=== PATIENT | female | born 1970 | race Two or more races ===

== ENCOUNTER → 2024-04-10 | Outpatient (CLI) | payer MEDICAID, SELFPAY ==
--- NOTE | 2024-04-10 13:15 | XR_ITS ---
Examination: Screening digital mammography, bilateral Computer aided detection 3-D breast Tomosynthesis, bilateral Date and time of exam: April 10, 2024 1257 hours Compared to mammograms dating to April 09, 2014 Indication: Screening Technique: Nonmagnified MLO, CC views of the breasts to been obtained, reconstructed from 3-D Tomosynthesis images. R2 computer aided detection program utilized for evaluation of suspicious masses and/or abnormal calcifications. 3-D Tomosynthesis images obtained. Findings: Scattered areas of fibroglandular density. Benign calcifications. No interval suspicious masses Impression: BI-RADS category II: Benign Findings. Recommend 1 year follow-up mammogram.
== END | disposition home or self-care (01) ==
PROVIDERS: PCP Obstetrics & Gynecology; Referring Provider Obstetrics & Gynecology; Visit Provider Obstetrics & Gynecology
DX: Z12.31 Encounter for screening mammogram for malignant neoplasm of breast (principal); R92.323 Mammographic fibroglandular density, bilateral breasts; R92.1 Mammographic calcification found on diagnostic imaging of breast
CPT/HCPCS: 77063; 77067

== ENCOUNTER → 2025-04-28 | Outpatient (CLI) | payer MEDICAID, SELFPAY ==
--- NOTE | 2025-04-28 13:16 | XR_ITS ---
Radiographic 2 view study of the right foot on 04/28/2025 at 1:50 p.m. CLINICAL INDICATION: Right foot pain particularly in the heel for 4-month Findings a few tiny insignificant subchondral degenerative cystic erosions are seen in the base of the second proximal phalanx. There are small degenerative osteophytes noted on the tuberosity of the os calcis, at the insertion of the Achilles tendon and insertion of the plantar aponeurosis. All of the joint spaces in the midfoot and hindfoot appear normal. The Lisfranc joints appear unremarkable. There is a flexion deformity involving the fourth toe. 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 Extremely small degenerative osteophytes are seen involving the os calcis. 2. No other significant abnormalities are identified
== END | disposition home or self-care (01) ==
LOC: CDIM 13:07
PROVIDERS: PCP Internal Medicine; Referring Provider Internal Medicine; Visit Provider Internal Medicine
DX: M25.774 Osteophyte, right foot (principal)
CPT/HCPCS: 73620